=== PATIENT | female | born 1965 | race Caucasian/White ===

== ENCOUNTER 2021-07-26 08:48 | Emergency (ER) | payer BC ==
[~2021-07-26] VITALS: Ht 157.5 cm; Wt 82.7 kg
[2021-07-26 09:24] LABS: URINE APPEARANCE CLOUDY; URINE COLOR YELLOW
[2021-07-26 09:25] LABS: PH-URINE 5.5 (5.0 - 8.0); URINE BILIRUBIN NEGATIVE (NEGATIVE); URINE BLOOD 250 ery/uL (NEGATIVE); URINE GLUCOSE NEGATIVE (NEGATIVE); URINE KETONE NEGATIVE (NEGATIVE); URINE LEUKOCYTE ESTERASE 2+ (NEGATIVE); URINE NITRATE POSITIVE (NEGATIVE); URINE PROTEIN(semi-quant) 1+ (NEGATIVE); URINE UROBILINOGEN NORMAL (NORMAL)
[2021-07-26 09:32] LABS: URINE WBC >50 /hpf (0-3)
[2021-07-26] MEDS ORDERED: SEPTRA DS 8001 TAB PO (09:46)
[2021-07-26 09:54] VITALS: BP 142/78
== END 2021-07-26 09:56 | disposition home or self-care (01) ==
LOC: ED 08:48
PROVIDERS: Family Medicine
DX: N39.0 Urinary tract infection, site not specified (principal); I10 Essential (primary) hypertension